=== PATIENT | female | born 1995 | race American Indian/Alaskan Native ===

== ENCOUNTER 2019-02-15 12:52 | Emergency (ER) | payer SELFPAY ==
--- NOTE | 2019-02-15 13:03 | Event Note ---
ED Screening Note ED Screening Note: pt states her left ear is clogged has been using q-tips tried peroxide no fever no drainage never happened before no PMHx no allergies to meds This initial assessment/diagnostic orders/clinical plan/treatment(s) is/are subject to change based on patients health status, clinical progression and re-assessment by fellow clinical providers in the ED. Further treatment and workup at subsequent clinical providers discretion. Patient/guardian urged not to elope from the ED as their condition may be serious if not clinically assessed and managed.
[2019-02-15 13:04] VITALS: BP 114/72
[2019-02-15] MEDS ORDERED: COLACE PO ONE (14:08)
[2019-02-15] MEDS ORDERED: COLACE ONE (14:10)
--- NOTE | 2019-02-15 14:39 | Emergency Department Report ---
ED ENT HPI - General Chief complaint: Earache Stated complaint: (L) EAR CLOGGED Time Seen by Provider: 02/15/19 13:00 Source: patient Mode of arrival: Ambulatory Limitations: No Limitations - History of Present Illness Initial comments: pt is a 23 yo female who presents to the ED with c/o feeling that her left ear is clogged for the last couple of days. pt has been using q-tips and tried peroxide. she denies any fever or drainage. patient states she has never had this before. no PMHx, no allergies to meds, pt states having diffficulty hearing from the left ear. - Related Data Previous Rx's Medication Instructions Recorded Last Taken Type Amoxicillin [Amoxicillin TAB] 875 mg PO BID 7 Days #14 tablet 02/15/19 Unknown Rx Allergies Allergy/AdvReac Type Severity Reaction Status Date / Time No Known Allergies Allergy Unverified 02/15/19 12:55 ED Dental HPI - General Chief complaint: Earache Stated complaint: (L) EAR CLOGGED Time Seen by Provider: 02/15/19 13:00 Source: patient Mode of arrival: Ambulatory Limitations: No Limitations - Related Data Previous Rx's Medication Instructions Recorded Last Taken Type Amoxicillin [Amoxicillin TAB] 875 mg PO BID 7 Days #14 tablet 02/15/19 Unknown Rx Allergies Allergy/AdvReac Type Severity Reaction Status Date / Time No Known Allergies Allergy Unverified 02/15/19 12:55 ED Review of Systems ROS: Stated complaint: (L) EAR CLOGGED Other details as noted in HPI Comment: All other systems reviewed and negative ED Past Medical Hx - Past Medical History Previous Medical History?: No - Surgical History Past Surgical History?: No - Social History Smoking Status: Never Smoker Substance Use Type: None - Medications Home Medications: Home Medications Medication Instructions Recorded Confirmed Last Taken Type Amoxicillin [Amoxicillin TAB] 875 mg PO BID 7 Days #14 tablet 02/15/19 Unknown Rx ED Physical Exam - General Limitations: No Limitations General appearance: alert, in no apparent distress - Head Head exam: Present: atraumatic, normocephalic - Eye Eye exam: Present: normal appearance, PERRL, EOMI. Absent: periorbital swelling, periorbital tenderness - ENT ENT exam: Present: normal orophraynx, mucous membranes moist, other (left TM appears to be cerumen impaction deep in the canal secondary to q-tip use, cerumen also present in the right canal, not completely impacted, portion of Right TM that is visible appears normal ) - Neurological Exam Neurological exam: Present: alert, oriented X3 - Psychiatric Psychiatric exam: Present: normal affect, normal mood - Skin Skin exam: Present: warm, dry, intact ED Course Vital Signs 02/15/19 13:01 Temperature 98.7 F Pulse Rate 84 Respiratory 19 Rate Blood Pressure 114/72 [Left] O2 Sat by Pulse 98 Oximetry - Ear Wax Removal Both Ears Cerumenolytic Used: Colace Ear Canal Irrigated by: RN, other (TRACY) Ear Canal Irrigated With: warm saline with H2O2 using syringe/angiocath Results: Re-examined: cerumen removed completel TM Visible: TM(s) erythematous (left) Ear Canal: atraumatic Patient Tolerated Procedure: well, no complications Complications: no problems Additional Comments: nurse used colace and some irrigation and pt states that a piece of the Q-tip she used came out with ear wax from the left ear I used peroxide and water with a catheter for irrigation to both ears, after irrigation ear wax removed from bilaterally ears completely Left TM appears erythematous, left canal is normal, no TM perforation bilaterally, right TM and canal are normal ED Medical Decision Making - Medical Decision Making pt is a 23 yo female who presents to the ED with c/o feeling that her left ear is clogged for the last couple of days. pt has been using q-tips and tried peroxide. she denies any fever or drainage. patient states she has never had this before. no PMHx, no allergies to meds, pt states having diffficulty hearing from the left ear. on exam: left TM appears to be cerumen impaction deep in the canal secondary to q-tip use, cerumen also present in the right canal, not com pletely impacted, portion of Right TM that is visible appears normal. colace used by RN and pt states that a piece of qtip was removed. see procedure note for rest of cerumen impaction removal. after irrigated, left TM appears to have otitis media, no perforation, bilateral canals are normal, right TM is normal. pt given prescription for abx. advised to please take medication as prescribed. Do not use Q-tips in the ears. Follow up with a primary care doctor in the next 3 days for ear reevaluation. Return to emergency room for any new or worsening symptoms. Critical care attestation.: If time is entered above; I have spent that time in minutes in the direct care of this critically ill patient, excluding procedure time. ED Disposition Clinical Impression: Cerumen impaction Qualifiers: Laterality: bilateral Qualified Code(s): H61.23 - Impacted cerumen, bilateral Foreign body in left ear Qualifiers: Encounter type: initial encounter Qualified Code(s): T16.2XXA - Foreign body in left ear, initial encounter Left otitis media Qualifiers: Otitis media type: suppurative Chronicity: acute Recurrence: non-recurrent Spontaneous tympanic membrane rupture: without spontaneous rupture Qualified Code(s): H66.002 - Acute suppurative otitis media without spontaneous rupture of ear drum, left ear Disposition: TO HOME OR SELFCARE Is pt being admited?: No Does the pt Need Aspirin: No Condition: Stable Instructions: Cerumen Impaction (ED), Otitis Media (ED) Additional Instructions: Please take medication as prescribed. Do not use Q-tips in the ears. Follow up with a primary care doctor in the next 3 days for ear reevaluation. Return to emergency room for any new or worsening symptoms. Prescriptions: Amoxicillin [Amoxicillin TAB] 875 mg PO BID 7 Days #14 tablet Referrals: MIGUE JOINER MD [Primary Care Provider] - 2-3 Days Time of Disposition: 15:28 Print Language: CHILEAN
[2019-02-15] MEDS ORDERED: NACL 0.9% IR ONE (15:00)
[2019-02-15] MEDS ORDERED: HYDROGEN PEROXIDE TP ONE (15:00)
== END 2019-02-15 15:37 | disposition home or self-care (01) ==
LOC: ED 12:52
DX: T16.2XXA Foreign body in left ear, initial encounter (principal); H66.92 Otitis media, unspecified, left ear; H61.23 Impacted cerumen, bilateral; Z79.899 Other long term (current) drug therapy; X58.XXXA Exposure to other specified factors, initial encounter; Y93.89 Activity, other specified; Y92.89 Other specified places as the place of occurrence of the external cause; Y99.8 Other external cause status